=== PATIENT | female | born 1995 | race Caucasian/White ===

== ENCOUNTER 2020-10-22 02:44 | Outpatient (CLI) | payer BC ==
[2020-10-22 04:24] VITALS: BP 128/86; PULSE 90; RESP 16; TEMP 97
--- NOTE | 2020-12-03 15:27 | P.MSEPDOC ---
Presenting Problems - Arrival Data Date of Arrival on Unit: 10/22/20 Time of Arrival on Unit: 02:44 Mode of Transport: Ambulatory - Complaint OB-Reason for Admission/Chief Complaint: Vaginal Bleeding Comment: patient present to tirage due to c/o bleeding around. 0130 patient decribed it bright red blood moderate amount into the toilet and some. spoting since then, ABD soft to palpation, no active bleeding since present to triage,. reactive NST, cervix exam 1cm, 60%, -3, small bloody show on glove with check. orders to. recheck patient in 1 hour to see if any cervix change has been made. Medical History - Information : 1 Para: 0 Term: 0 : 0 Abortions: Spontaneous or Elective: 0 Number of Living Children: 0 - Gestational Age Gestational Age by JAQUELIN (wks/days): 39 Weeks and 0 Days Review of Systems - Review of Systems Constitutional: No problems Breast: No problems ENT: No problems Cardiovascular: No problems Respiratory: No problems Gastrointestinal: No problems Genitourinary: No problems Musculoskeletal: No problems Neurological: No problems Skin: No problems Vital Signs - Temperature Temperature: 97.0 F Temperature Source: Temporal Artery Scan - Pulse Pulse Oximetery Pulse Rate: 90 Pulse Assessment Method: Automatic Cuff - Respirations Respiratory Rate: 16 Oxygen Delivery Method: Room Air O2 Sat by Pulse Oximetry: 97 - Blood Pressure Right Arm Blood Pressure: 128/86 Blood Pressure Mean: 100 Blood Pressure Source: Automatic Cuff Medical Screen Scoring (Pre) - Cervical Exam Dilation: 1-3 cm = 1 Effacement: More than 50% = 2 Membranes: Intact - Uterine Contractions Frequency: N/A Duration: N/A Intensity: N/A - Maternal Vital Signs Maternal Temperature: N/A Signs of Preeclampsia: N/A Maternal Respirations: N/A - Maternal Trauma Maternal Trauma: N/A - Assessment - Baby A Baseline FHR: 120 Heart Rate - NICHD Category: Category I (Normal) = 0 NST: Reactive Position: N/A Station: N/A - Total Score - Baby A Total Score - Baby A: 3 - Total Score - Baby B Total Score - Baby B: 3 - Total Score - Baby C Total Score - Baby C: 3 - Level of Risk - Baby A Level of Risk - Baby A: Low (0-5) - Level of Risk - Baby B Level of Risk - Baby B: Low (0-5) - Level of Risk - Baby C Level of Risk - Baby C: Low (0-5) Physician Notification (Pre) - Physician Notified Physician Notified Date: 10/22/20 Physician Notified Time: 03:14 Disposition - Disposition OB Disposition: Discharge to home Discharge Date: 10/22/20 Discharge Time: 04:15 I agree with the RN Medical Screening Exam: Yes Case reviewed; plan agreed upon as documented in EMR&OBIX.: Yes Diagnosis: FALSE LABOR AT OR AFTER 37 COMPLETED WEEKS OF GESTATION
== END 2020-10-22 04:15 | disposition home or self-care (01) ==
LOC: FBPOP 02:44
PROVIDERS: ATTEND Obstetrics & Gynecology Obstetrics
DX: O47.1 False labor at or after 37 completed weeks of gestation (principal); Z3A.39 39 weeks gestation of pregnancy
CPT/HCPCS: 59025; 99213

== ENCOUNTER 2020-10-24 06:23 | Inpatient (IN) | payer BC ==
[2020-10-24] MEDS ORDERED: LIDOCAINE 0.5% (PF) 5 MG/ML (50 ML SDV) SQ PRN (06:49)
[2020-10-24] MEDS ORDERED: CARBOPROST TROMETHAMINE 250 MCG/ML 1 ML AMP IM PRN (06:49)
[2020-10-24] MEDS ORDERED: TERBUTALINE 1 MG/ML VIAL SQ PRN (06:49)
[2020-10-24] MEDS ORDERED: METHYLERGONOVINE 0.2 MG/ML 1 ML AMP IM PRN (06:49)
[2020-10-24] MEDS ORDERED: OXYTOCIN 10 UNIT/ML 1 ML VIAL IM PRN (06:49)
[2020-10-24] MEDS ORDERED: BUTORPHANOL 1 MG/ML 1 ML VIAL IV PRN (06:50)
[2020-10-24 07:07] LABS: Basophils % (A) 0 %; Eosinophils # (A) 0.1 k/uL (0-0.7); Eosinophils % (A) 1 %; HCT 36.8 % (34.0-46.0); Lymphocytes # (A) 1.6 k/uL (1.0-4.8); Lymphocytes % (A) 18 %; MCH 32.8 pg (25.0-35.0); MCHC 35.3 g/dL (31.0-37.0); MCV 92.7 fL (80.0-100.0); Mean Platelet Volume 7.2; Monocytes # (A) 0.5 k/uL (0-1.0); Monocytes % (A) 6 %; Neutrophils # (A) 6.8 k/uL (1.3-7.7); Neutrophils % (A) 73 %; Platelet Count 286 k/uL (150-450); RBC 3.97 m/uL (3.80-5.40); RDW 12.6 % (11.5-15.5); WBC 9.3 k/uL (3.8-10.6)
[2020-10-24] MEDS: LACTATED RINGERS 1,000 ML IV SCH ×3 (07:07→12:37)
[2020-10-24 07:17] LABS: ALT 15 U/L (4-34); AST 23 U/L (14-36); African American GFR (CKD) >90 (>60 ml/min/1.73 sqM); Blood Urea Nitrogen 8 mg/dL (7-17); LDH 419 U/L (313-618); Non-African American GFR(CKD) >90 (>60 ml/min/1.73 sqM); Uric Acid 5.7 mg/dL (3.7-7.4)
[2020-10-24 07:25] LABS: INR 0.8 (<1.2); Prothrombin Time 9.3 sec (9.0-12.0)
[2020-10-24] MEDS ORDERED: SODIUM CHLORIDE 0.9% 100 ML BAG ONE (10:04)
[2020-10-24] MEDS ORDERED: ROPIVACAINE 5MG/ML 20ML VIAL ONE (10:04)
[2020-10-24] MEDS ORDERED: fentaNYL (PF) 50 MCG/ML 5 ML AMP ONE (10:04)
--- NOTE | 2020-10-24 10:31 | P.HPOB ---
History of Present Illness H&P Date: 10/24/20 Chief Complaint: Spontaneous onset of labor and rupture of membranes This is a 25-year-old 1 para 0 woman with an estimated due date of 10/29/2020 by LMP consistent with first trimester ultrasound. She presents with spontaneous rupture of membranes at approximately 5 AM and onset of regular contractions. She reports clear fluid and denies vaginal bleeding. Upon initial evaluation in labor and delivery triage rupture of membranes is confirmed and she is regularly sanket and 3+ centimeters dilated. has been uncomplicated. She did have a marginal placenta previa but this did resolve in the third trimester. She's had no episodes of vaginal bl eeding. She laboratory data: Blood type A+, antibody screen negative, rubella immune, VDRL nonreactive, hepatitis B surface antigen negative, HIV negative, gonorrhea and clinic cultures negative, glucose tolerance testing 124, group B strep negative. She did receive the Tdapp Vaccine. Review of Systems All systems: negative Past Medical History Past Medical History: No Reported History History of Any Multi-Drug Resistant Organisms: None Reported Past Surgical History: No Surgical Hx Reported Past Anesthesia/Blood Transfusion Reactions: No Reported Reaction Past Psychological History: No Psychological Hx Reported Smoking Status: Never smoker Past Alcohol Use History: None Reported Past Drug Use History: None Reported - Past Family History Father Family Medical History: Hypertension Medications and Allergies Home Medications Medication Instructions Recorded Confirmed Type Pnv No.95/Ferrous Fum/Folic AC 1 tab PO ONCE 10/22/20 10/24/20 History [ Multivitamin Tablet] Allergies Allergy/AdvReac Type Severity Reaction Status Date / Time Sulfa (Sulfonamide Allergy Rash/Hives Verified 10/24/20 06:48 Antibiotics) Exam Vital Signs Temp Pulse Pulse Resp BP BP 10/24/20 06:48 97.2 F L 96 18 133/86 10/24/20 06:45 97.2 F L 88 16 127/90 Intake and Output 10/23/20 10/24/20 10/24/20 22:59 06:59 14:59 Other: Weight 80.739 kg Results Result Diagrams: 10/24/20 06:54 10/24/20 06:54 Assessment and Plan (1) 39 weeks gestation of Current Visit: Yes Status: Acute Code(s): Z3A.39 - 39 WEEKS GESTATION OF SNOMED Code(s): 11004345 (2) Spontaneous onset of labor Current Visit: Yes Status: Acute Code(s): DEO4422 - SNOMED Code(s): 02229776 (3) Spontaneous rupture of membranes Current Visit: Yes Status: Acute Code(s): ARE4724 - SNOMED Code(s): 359001034 Plan: This is 25-year-old 1 para 0 woman who presents at 39-2/7 weeks' gestation with spontaneous rupture of membranes and onset of active labor. heart tones are currently category 1. She is sanket spontaneously every 2-4 minutes. She is requested and will receive an epidural anesthetic for analgesia. Anticipate normal spontaneous vaginal delivery.
[2020-10-24] MEDS ORDERED: ROPIVACAINE 100 MG, fentaNYL (PF) 200 MCG in SODIUM CHLORIDE 0.9% 76 ML EPIDURAL ONE (10:51)
--- NOTE | 2020-10-24 15:53 | P.PROBDLV ---
Vaginal Delivery Note - . Vaginal Delivery Note: Findings: Female in the right occiput anterior position with Apgars of 9 at 1 minute and 9 at 5 minutes weighing 7 lbs. 4 oz., 3280 g. Intact, three- vessel cord placenta. Second-degree midline episiotomy. uterine atony managed by IV Pitocin and single dose of IM Methergine with bimanual uterine massage. EBL approximately 400 mL's. Delivery summary: This is a 25-year-old 1 para 0 woman who presented at 39-2/7 weeks' gestation with spontaneous rupture of membranes at approximately 5 AM with onset of labor at that time. Upon initial presentation rupture of membranes was confirmed and she was admitted. She received an epidural anesthe tic. She progressed to complete cervical dilation after approximate 10 hour first stage of labor. She commenced pushing with excellent maternal effort. She had a category 2 heart tones in the second stage. With she was repositioned, prepped and draped in the modified Reyna position. Patient is complaining of significant pain and perineum appear type therefore the perineum was infused with lidocaine and a small second-degree midline episiotomy was cut. With the next maternal effort the head did deliver from the right occiput anterior position. The anterior followed by the posterior shoulders were easily delivered and the rest the was delivered onto the field. The nose and mouth were bulb suctioned. Eventually the cord was clamped and cut. Apgars were 9 at 1 minute and 9 at 5 minutes and weight was 7 lbs. 4 oz. The perineum was inspected and a second-degree laceration was noted. This was further infused with lidocaine and repaired with 3-0 Vicryl suture in the usual fashion. An intact, three-vessel cord placenta was then expressed after approximately 7 minute third stage of labor. The bladder was drained for approximately 200 mL's of clear urine with a straight catheter. The uterus was massaged and was noted to be firm however approximately 5 minutes later the patient did have a sudden increase in bright red vaginal bleeding. This was man aged with bimanual uterine massage and atony was noted. This rapidly resolved with increase in Pitocin intravenously as well as a single dose of IM Methergine. The uterus was then firm approximately 3 cm below the umbilicus. The laceration was reinspected and was noted to be intact. Total EBL for delivery plus atonic event was approximate 400 mL's. All counts were correct. Both mother and were doing well post delivery in the room.
[2020-10-24] MEDS ORDERED: ZOLPIDEM 5 MG TAB PO PRN (15:54)
[2020-10-24] MEDS ORDERED: SIMETHICONE 80 MG CHEWABLE PO PRN (15:54)
[2020-10-24] MEDS ORDERED: LANOLIN CREAM 5 GM TUBE TOPICAL PRN (15:54)
[2020-10-24] MEDS ORDERED: BENZOCAINE/MENTHOL SPRAY 1 GM/SPRAY AEROSOL TOPICAL PRN (15:54)
[2020-10-24] MEDS ORDERED: ACETAMINOPHEN TAB 325 MG TAB PO PRN (15:54)
[2020-10-24] MEDS ORDERED: HYDROCORTISONE 2.5% RECTAL CREAM 30 GM TUBE RECTAL PRN (15:54)
[2020-10-24] MEDS ORDERED: diphenhydrAMINE 50 MG CAP PO PRN (15:54)
[2020-10-24] MEDS ORDERED: diphenhydrAMINE 25 MG CAP PO PRN (15:54)
[2020-10-24] MEDS ORDERED: diphenhydrAMINE 50 MG/ML 1 ML VIAL IVP PRN ×2 (15:54)
[2020-10-24] MEDS ORDERED: OXYTOCIN 30 UNITS/500 ML NS 30 UNIT in SALINE 1 500ML.BAG IV SCH (16:30)
[2020-10-24] MEDS: IBUPROFEN 600 MG TAB PO PRN (17:16)
[2020-10-24] MEDS: SENNOSIDES-DOCUSATE SODIUM 1 EACH TAB PO SCH (19:56)
[2020-10-25] MEDS: IBUPROFEN 600 MG TAB PO PRN (04:57)
[2020-10-25 07:13] LABS: Basophils % (A) 0 %; Eosinophils # (A) 0.1 k/uL (0-0.7); Eosinophils % (A) 1 %; HCT 30.5 % (34.0-46.0); HGB 10.3 gm/dL (11.4-16.0); Lymphocytes # (A) 1.8 k/uL (1.0-4.8); Lymphocytes % (A) 19 %; MCHC 33.7 g/dL (31.0-37.0); MCV 94.9 fL (80.0-100.0); Mean Platelet Volume 7.2; Monocytes # (A) 0.6 k/uL (0-1.0); Monocytes % (A) 6 %; Neutrophils # (A) 6.8 k/uL (1.3-7.7); Neutrophils % (A) 72 %; Platelet Count 265 k/uL (150-450); RBC 3.21 m/uL (3.80-5.40); RDW 13.3 % (11.5-15.5); WBC 9.4 k/uL (3.8-10.6)
[2020-10-25] MEDS: SENNOSIDES-DOCUSATE SODIUM 1 EACH TAB PO SCH (08:22)
[2020-10-25 08:31] VITALS: RESP 16
--- NOTE | 2020-10-25 09:04 | P.DS ---
Providers Date of admission: 10/24/20 06:42 Expected date of discharge: 10/25/20 Attending physician: Letha Willams Primary care physician: Stated None - Discharge Diagnosis(es) (1) Status post vaginal delivery Current Visit: Yes Status: Acute (2) Second degree perineal laceration Current Visit: Yes Status: Acute (3) 39 weeks gestation of Current Visit: Yes Status: Acute (4) Spontaneous onset of labor Current Visit: Yes Status: Acute (5) Spontaneous rupture of membranes Current Visit: Yes Status: Acute Hospital Course: This is a 25-year-old 1 para 0 that presented to labor and delivery at 39-2/7 weeks with spontaneous rupture of membranes. Patient noted contractions at that time. Patient was admitted to labor and delivery and requested epidural analgesia soon after admission. Patient progressed to complete began pushing and had a normal spontaneous vaginal delivery of a viable female weight of 7 lbs. 4 oz. and Apgars of 9 and 9 at one and 5 minutes respectively. Patient did sustain a second-degree midline laceration during delivery. This laceration was repaired in usual fashion with 3-0 Rapide. Patient's post course has been uneventful. On this postoperative day #1 she is ambulating and voiding without difficulty. She is tolerating a regular diet without nausea or vomiting. She is breast-feeding without difficulty. She is doing well and would like discharge home at 24 hours if infant is discharged along with her. Patient Condition at Discharge: Good Plan - Discharge Summary New Discharge Prescriptions: No Action Pnv No.95/Ferrous Fum/Folic AC [ Multivitamin Tablet] 1 tab PO ONCE Discharge Medication List Pnv No.95/Ferrous Fum/Folic AC [ Multivitamin Tablet] 1 tab PO ONCE 10/22/20 [History] Follow up Appointment(s)/Referral(s): Letha Willams DO [Doctor of Osteopathic Medicine] - 4 Weeks Patient Instructions/Handouts: Vaginal Delivery (DC), Vaginal Delivery (GEN) Activity/Diet/Wound Care/Special Instructions: Patient can expect menstrual-like bleeding for 4-6 weeks after delivery. Patient is to follow-up in the office in 4 weeks. [id number] ibuprofen 600 mg as needed for pain every 6 hours. Patient is to call the office she have any concerns prior to her appointment. Discharge Disposition: HOME SELF-CARE
[2020-10-25 15:49] VITALS: BP 107/73; PULSE 98; TEMP 98.3
== END 2020-10-25 17:20 | disposition home or self-care (01) | DRG 806 ==
LOC: FBPOP 06:23 → 4FBP 06:42
PROVIDERS: ADMIT Obstetrics & Gynecology; ATTEND Obstetrics & Gynecology Obstetrics
PROC: 10E0XZZ Delivery of Products of Conception, External Approach (ICD-10-PCS; principal; 2020-10-24)
PROC: 0KQM0ZZ Repair Perineum Muscle, Open Approach (ICD-10-PCS; principal; 2020-10-24)
PROC: 3E0R3NZ Introduction of Analgesics, Hypnotics, Sedatives into Spinal Canal, Percutaneous Approach (ICD-10-PCS; principal; 2020-10-24)
PROC: 00HU33Z Insertion of Infusion Device into Spinal Canal, Percutaneous Approach (ICD-10-PCS; principal; 2020-10-24)
DX: O70.1 Second degree perineal laceration during delivery (principal); O72.1 Other immediate postpartum hemorrhage; Z37.0 Single live birth; Z3A.39 39 weeks gestation of pregnancy; Z82.49 Family history of ischemic heart disease and other diseases of the circulatory system
CPT/HCPCS: 82565; 83615; 84450; 84460; 84520; 84550; 85025; 85610; 85730; 86850; 86900; 86901